=== PATIENT | male | born 1980 | race Caucasian/White ===

== ENCOUNTER 2016-12-26 23:10 | Emergency (ER) | payer SELFPAY ==
[~2016-12-26] VITALS: Ht 170.2 cm; Wt 70.3 kg
[2016-12-26 23:10] VITALS: BP_SYST 142
[2016-12-27] MEDS ORDERED: LORazepam 2 MG/ML VIAL IVP ONE
[2016-12-27] MEDS ORDERED: LORazepam 2 MG/ML VIAL (FOR ER USE) ONE (00:41)
[2016-12-27 01:32] VITALS: BP_SYST 142
== END 2016-12-27 01:32 | disposition home or self-care (01) ==
LOC: SED 23:10
DX: R09.89 Other specified symptoms and signs involving the circulatory and respiratory systems (principal); F41.9 Anxiety disorder, unspecified
CPT/HCPCS: 70360; 96374; 99284; J2060